=== PATIENT | female | born 1965 | race Caucasian/White ===

== ENCOUNTER 2018-06-16 13:29 | Emergency (ER) | payer OTHER ==
[2018-06-16 14:01] LABS: URINE BLOOD (Dip) POC 3+ (NEGATIVE); URINE GLUCOSE (Dip) POC Negative (NEGATIVE); URINE KETONES (Dip) POC Negative (NEGATIVE); URINE LEUKOCYTE EST (Dip) POC 3+ (NEGATIVE); URINE NITRITE (Dip) POC Negative (NEGATIVE); URINE TOTAL PROTEIN POC 1+ (NEGATIVE)
[2018-06-16] MEDS: CEPHALEXIN 500 MG CAP PO (14:22)
[2018-06-16] MEDS: PHENAZOPYRIDINE 100 MG TAB PO (14:22)
== END 2018-06-16 14:45 | disposition home or self-care (01) ==
LOC: FTE 13:29
DX: N30.00 Acute cystitis without hematuria (principal)
CPT/HCPCS: 81003; 81025; 99283

== ENCOUNTER 2018-07-16 08:43 | Emergency (ER) | payer OTHER | END 2018-07-16 09:50 | disposition home or self-care (01) | LOC: FTE 08:43 | DX: J06.9 Acute upper respiratory infection, unspecified (principal); I10 Essential (primary) hypertension | CPT/HCPCS: 99283; Z7502 ==